=== PATIENT | male | born 1975 | race Caucasian/White ===

== ENCOUNTER 2018-09-01 15:04 | Emergency (ER) | payer MEDICAID ==
[~2018-09-01] VITALS: Ht 167.6 cm; Wt 77.6 kg
[~2018-09-01 15:04] MED LIST: GLU500 PO; LOP600 PO; NORCO1 TA2 PO; PRINIVIL10 MG PO
[2018-09-01 15:51] VITALS: BP 134/95; Ht 167.6 cm; Wt 77.6 kg
== END 2018-09-01 17:53 | disposition home or self-care (01) ==
LOC: ED 15:04
DX: M25.512 Pain in left shoulder (principal); M54.2 Cervicalgia; I10 Essential (primary) hypertension; E11.9 Type 2 diabetes mellitus without complications
CPT/HCPCS: J1885